=== PATIENT | male | born 1995 | race African-American/Black ===

== ENCOUNTER 2016-10-18 00:23 | Emergency (ER) | payer BC ==
[2016-10-18] MEDS ORDERED: NS 0.9% 1000 ML* 1,000 ML IV ONE (00:31)
[2016-10-18] MEDS ORDERED: diPHENhydraMINE IV* 50 MG/ML 1 ml VIAL (BENADRYL) IV ONE (00:36)
[2016-10-18] MEDS ORDERED: LORazepam INJ* 2 MG/ML 1 ML VIAL IV PUSH ONE (00:36)
[2016-10-18] MEDS ORDERED: Haloperidol INJ IV/IM* 5 MG/ML AMP IM ONE (00:36)
[2016-10-18] MEDS ORDERED: Acetaminophen SUPP* 650 MG SUPP PR ONE (00:53)
--- NOTE | 2016-10-18 01:24 | ED ---
Jessica Zavala Michael, scribed for Alexy Brand MD on 10/18/16 at 0029 . Substance Abuse/Use - HPI Summary HPI Summary: 21 y/o male was brought in by [place] police department to the ED. The pt was drinking alcohol on the street when the police approached him and he tried to run away. The pt is a college student at [employer]. The HPI is limited due to AMS. - History Of Current Complaint Stated Complaint: AMS Hx Obtained From: Medical Records, Other: - police Hx From Patient Unobtainable Due To: Altered Mental Status Onset/Duration of Drug/ETOH Abuse: Minutes Ingestion History: Type/Name Of Drug - alcohol Timing Of Abuse: Binge Use Severity Initially: Moderate Severity Currently: Moderate Character: Other Associated Signs And Symptoms: Other: - AMS - Allergies/Home Medications Allergies/Adverse Reactions: Allergies Allergy/AdvReac Type Severity Reaction Status Date / Time No Known Allergies Allergy Verified 10/18/16 04:02 Home Medications: Home Medications NK [No Home Medications Reported] 10/18/16 [History Confirmed 10/18/16] PMH/Surg Hx/FS Hx/Imm Hx - Social History Occupation: Student Review of Systems - ROS Summary Review of Systems Summary: limited due to AMS-level 5 caveat Neurological: Other - AMS All Other Systems Reviewed And Are Negative: No Physical Exam Triage Information Reviewed: Yes Vital Signs On Initial Exam: Initial Vitals Resp 30 10/18/16 00:43 Vital Signs Reviewed: Yes Appearance: Positive: Well-Appearing, No Pain Distress - aob Head/Face: Positive: Normal Head/Face Inspection Eyes: Positive: CARROL ENT: Positive: Hearing grossly normal Neck: Positive: Supple Respiratory/Lung Sounds: Positive: Clear to Auscultation, Breath Sounds Present Cardiovascular: Positive: RRR Abdomen Description: Positive: Nontender, Soft Bowel Sounds: Positive: Present Musculoskeletal: Positive: Strength/ROM Intact Neurological: Positive: Sensory/Motor Intact, Alert, Oriented to Person Place, Time Diagnostics - Vital Signs Vital Signs Temp Pulse Resp BP Pulse Ox 10/18/16 00:44 101.2 F 130 20 126/67 98 10/18/16 00:43 30 - Laboratory Result Diagrams: 10/18/16 01:55 10/18/16 01:55 Lab Statement: Any lab studies that have been ordered have been reviewed, and results considered in the medical decision making process. - EKG EK EKG Rhythm: Sinus Tachycardia Re-Evaluation - Re-Evaluation First Eval Re-Evaluation Time: 06:00 - pt states took acid Change: Improved Course/Dx - Course Course Of Treatment: pt was positive for benzodiazepines, amphetamines, cocaie, and cannabiniods - Diagnoses Provider Diagnoses: Polysubstance abuse Discharge - Discharge Plan Condition: Improved Disposition: HOME Patient Education Materials: Polysubstance Abuse (ED) [place] [facility]Outside] Additional Instructions: [place] up [place] [facility] [place] needed. The documentation as recorded by the Jessica crum Michael accurately reflects the service I personally performed and the decisions made by me, Alexy Brand MD.
[2016-10-18 02:06] LABS: Hematocrit 38 % (42-52); Hemoglobin 12.4 g/dl (14.0-18.0); Mean Corpuscular HGB Conc 33 g/dl (31-36); Mean Corpuscular Hemoglobin 28 pg (27-31); Mean Corpuscular Volume 86 fL (80-94); Mean Platelet Volume 10 um3 (7.4-10.4); Red Blood Count 4.41 10^6/ul (4.0-5.4); Red Cell Distribution Width 13 % (10.5-15); White Blood Count 12.7 10^3/ul (3.5-10.8)
[2016-10-18 02:22] LABS: ALT 25 U/L (7-52); AST 26 U/L (13-39); Albumin 4.6 g/dL (3.2-5.2); Alkaline Phosphatase 54 U/L (34-104); Anion Gap 12 mmol/L (2-11); BUN/Creatinine Ratio 9.4 (8-20); Blood Urea Nitrogen 12 mg/dL (6-24); CO2 Carbon Dioxide 23 mmol/L (22-32); Calcium 9.4 mg/dL (8.6-10.3); Chloride 101 mmol/L (101-111); Creatine Kinase 366 U/L (10-223); EGFR African American 91.2 (>60); EGFR Non-African American 70.9 (>60); Globulin 2.1 g/dL (2-4); Glucose 74 mg/dL (70-100); Potassium 3.6 mmol/L (3.5-5.0); Sodium 136 mmol/L (133-145); Total Protein 6.7 g/dL (6.4-8.9)
[2016-10-18 02:41] LABS: Acetaminophen < 15 mcg/mL; Alcohol < 10 mg/dL (<10); Salicylate < 2.50 mg/dL (<30)
[2016-10-18 04:19] LABS: Urine Bacteria Absent (Absent); Urine Bilirubin Negative (Negative); Urine Glucose Negative (Negative); Urine Nitrite Negative (Negative); Urine Sperm Present (Absent)
[2016-10-18 04:47] LABS: Benzodiazepine Urine Screen Presumptive Positive (None Detect)
[2016-10-18 09:41] VITALS: BP 107/60
== END 2016-10-18 09:39 | disposition home or self-care (01) ==
LOC: MERGE 00:23 → ED 00:23
DX: F19.10 Other psychoactive substance abuse, uncomplicated (principal)
CPT/HCPCS: 36415; 80053; 80307; 80320; 80329; 81003; 81015; 82550; 83605; 85025; 93005; 96360; 96372; 96374; 96375; 99283; A9270-GY; G0480